=== PATIENT | male | born 1980 | race African-American/Black ===

== ENCOUNTER 2016-09-04 02:35 | Emergency (ER) | payer MEDICAID ==
[~2016-09-04 02:35] MED LIST: VIBRAMYCIN100 M1 PO
== END 2016-09-04 05:40 | disposition home or self-care (01) ==
LOC: CED 02:35
DX: L30.9 Dermatitis, unspecified (principal); Z88.2 Allergy status to sulfonamides; Z79.899 Other long term (current) drug therapy
CPT/HCPCS: 99282